=== PATIENT | male | born 1980 | race Caucasian/White ===

== ENCOUNTER 2021-01-05 11:17 | Emergency (ER) | payer OTHER ==
[2021-01-05] MEDS ORDERED: CASIRIVIMAB/IMDEVIMAB 10 ML in SODIUM CHLORIDE 100 ML IVPB ONE (11:55)
[2021-01-05 11:56] VITALS: TEMP 99.1; BMI 25.8
[2021-01-05 13:10] LABS: HEMATOCRIT 45.1 % (35.4-49); HEMOGLOBIN 15.4 GM/dL (11.7-16.9); MCH 27.8 pg (25.7-33.7); MCHC 34.1 g/dl (32.0-35.9); MEAN CELL VOLUME 81.6 fl (80-96); MEAN PLT VOLUME 9.1 fl (7.5-11.1); PLATELET COUNT 193 10^3/uL (134-434); RBC 5.53 M/mm3 (4.00-5.60); RDW 13.9 % (11.9-15.9); WHITE BLOOD COUNT 8.4 K/mm3 (4.0-10.0)
[2021-01-05 13:29] LABS: ALBUMIN 3.8 g/dl (3.4-5.0); BLOOD UREA NITROGEN 12.8 mg/dL (7-18)
[2021-01-05 13:32] LABS: CREATININE 1.1 mg/dL (0.55-1.3)
[2021-01-05 13:33] LABS: BILIRUBIN,TOTAL 0.3 mg/dL (0.2-1)
[2021-01-05 13:34] LABS: TOT PROT 7.7 g/dl (6.4-8.2)
[2021-01-05 15:16] VITALS: BP 129/74; PULSE 89
== END 2021-01-05 15:13 | disposition home or self-care (01) ==
LOC: JER 11:17 → JCOVINFU 11:17
DX: U07.1 COVID-19 (principal); J06.9 Acute upper respiratory infection, unspecified; R05.9 Cough, unspecified; R09.81 Nasal congestion
CPT/HCPCS: 36415; 80053; 85027; 99284-25; Q0240